=== PATIENT | male | born 1965 | race Two or more races ===

== ENCOUNTER 2024-12-20 18:10 | Inpatient (IN) | payer SELFPAY ==
[~2024-12-20] VITALS: Ht 170.2 cm; Wt 75.0 kg
[2024-12-20 20:00] LABS: BASOPHILS % (AUTO) 0.4 % (0.0-2.0); EOSINOPHILS % (AUTO) 0.5 % (1.0-6.0); HEMATOCRIT 47.5 % (41-53); HEMOGLOBIN 15.9 g/dL (13.5-17.5); LYMPHOCYTES # (AUTO) 1.5 K/uL (1.0-4.8); MEAN CORPUSCULAR HEMOGLOBIN 29.8 pg (26.0-34.0); MEAN CORPUSCULAR HGB CONC 33.5 G/dL (31.0-37.0); MEAN CORPUSCULAR VOLUME 89 fL (80-100); MONOCYTES # (AUTO) 0.3 K/uL (0.1-1.0); MONOCYTES % (AUTO) 5.1 % (2.0-9.0); NEUTROPHILS # (AUTO) 4.9 K/uL (1.8-7.7); PLATELET COUNT (AUTO) 140 K/uL (150-450); RED BLOOD CELL COUNT(AUTO) 5.35 MIL/uL (4.50-5.90); RED CELL DISTRIBUTION WIDTH 13.3 % (11.5-14.5); WHITE BLOOD COUNT (AUTO) 6.8 K/uL (4.5-11.0)
[2024-12-20 20:04] LABS: ANION GAP 12 mmol/L (8-16); CALCIUM, TOTAL 7.8 mg/dL (8.8-10.5); CARBON DIOXIDE 29 mmol/L (22-29); CHLORIDE 101 mmol/L (98-107); CREATININE 0.65 mg/dL (0.60-1.30); GLOMERULAR FILTR. RATE CALC > 60 mL/min (>60); GLUCOSE,RANDOM 156 mg/dL (70-110); POTASSIUM 3.9 mmol/L (3.5-5.1); SODIUM SERUM 142 mmol/L (136-145); UREA NITROGEN, BLOOD 11 mg/dL (7-18)
[2024-12-20 20:13] LABS: ALCOHOL, BLOOD (SERUM) 487 mg/dL (0-10)
[2024-12-20] MEDS ORDERED: ACETAMINOPHEN 325 MG TABLET PO PRN (21:45)
[2024-12-20] MEDS ORDERED: MAGNESIUM SULFATE 4 GM/WATER 100 ML IV PRN (21:45)
[2024-12-20] MEDS ORDERED: MAGNESIUM SULFATE 2 GM/WATER 50 ML IV PRN (21:45)
[2024-12-20] MEDS ORDERED: MAGNESIUM OXIDE 400 MG TABLET PO PRN (21:45)
[2024-12-20] MEDS ORDERED: ZOLPIDEM TARTRATE 5 MG TABLET PO PRN (21:45)
[2024-12-20] MEDS ORDERED: ONDANSETRON HCL 4 MG/2 ML VIAL IVP PRN (21:45)
[2024-12-20 22:07] LABS: ALBUMIN 3.4 g/dL (3.4-5.0)
[2024-12-20 22:12] LABS: APPEARANCE,URINE CLEAR (CLEAR); BILIRUBIN,URINE NEGATIVE (NEGATIVE); COLOR,URINE YELLOW (YELLOW); GLUCOSE, URINE (UA) 300-500 mg/dL (NEGATIVE); KETONES,URINE TRACE mg/dL (NEGATIVE); LEUKOCYTE ESTERASE ,URINE NEGATIVE (NEGATIVE); NITRATE,URINE NEGATIVE (NEGATIVE); OCCULT BLOOD,URINE TRACE (NEGATIVE); PROTEIN,URINE 30-70 mg/dL (NEGATIVE); SPECIFIC GRAVITIY, URINE 1.012 (1.003-1.030)
[2024-12-20] MEDS: 1: MAGNESIUM SULFATE 2 GM, MVI, ADULT NO.1 WITH VIT K 10 ML, THIAMINE 100 MG, FOLIC ACID IV SCH (22:28)
[2024-12-20 22:29] LABS: BACTERIA,URINE None Seen /HPF (None Seen); RBC,URINE 0-2 /HPF (0-2); SQUAMOUS EPITHELIAL CELL,UR None Seen /LPF (None Seen); WBC,URINE 0-2 /HPF (0-5)
[2024-12-21] MEDS: PANTOPRAZOLE SODIUM 40 MG/VIAL IVP SCH (08:30)
[2024-12-21] MEDS ORDERED: DEXTROSE 50%-WATER 25 GM/50 ML SYRINGE IVP PRN (08:30)
[2024-12-21] MEDS: LORazepam 2 MG/ML VIAL IVP PRN (08:30)
[2024-12-21] MEDS: DOCUSATE SODIUM 100 MG CAPSULE PO SCH (08:31)
[2024-12-21 10:10] VITALS: BP 151/88; PULSE 102; RESP 22; TEMP 98.4; O2SAT 95
[2024-12-21 13:05] VITALS: BP 143/79; PULSE 104; RESP 20; TEMP 98.7; O2SAT 98
[2024-12-21] MEDS ORDERED: SODIUM CHLORIDE 0.9% 1,000 ML ONE (15:25)
[2024-12-21 17:30] VITALS: BP 138/79; PULSE 98; RESP 18; TEMP 98.7; O2SAT 96
[2024-12-21] MEDS ORDERED: INFLUENZA VIRUS VACCINE TVS (6MO+) 2024-25/PF 45 MCG/0.5 ML SYRINGE IM. ONE (17:45)
[2024-12-21 19:55] VITALS: BP 140/89; PULSE 97; RESP 18; TEMP 99.3; O2SAT 98
[2024-12-21 20:46] LABS: GLUCOMETER DEV NAME(LOC) 6S.1D; GLUCOSE,POINT OF CARE 129 MG/DL (70-110)
[2024-12-21 22:36] LABS: GLUCOMETER DEV NAME(LOC) 6S.2; GLUCOSE,POINT OF CARE 115 MG/DL (70-110)
[2024-12-22 04:37] VITALS: BP 129/91; PULSE 102; RESP 19; TEMP 98.8; O2SAT 97
[2024-12-22] MEDS: INSULIN LISPRO 100 UNITS/ML SQ PRN (05:50)
[2024-12-22 06:51] LABS: GLUCOMETER DEV NAME(LOC) 6S.2; GLUCOSE,POINT OF CARE 201 MG/DL (70-110)
[2024-12-22 07:54] VITALS: BP 142/79; PULSE 84; RESP 18; TEMP 98.6; O2SAT 97
[2024-12-22 20:30] LABS: GLUCOMETER DEV NAME(LOC) 6S.2; GLUCOSE,POINT OF CARE 127 MG/DL (70-110)
== END 2024-12-22 15:10 | disposition home or self-care (01) | DRG 92 ==
LOC: EMS 18:10 → EDH 22:12 → 6S 12-21 10:17
PROVIDERS: ADMIT Internal Medicine; ATTEND Internal Medicine
DX: G92.8 Other toxic encephalopathy (principal); F10.139 Alcohol abuse with withdrawal, unspecified; F10.129 Alcohol abuse with intoxication, unspecified; Y90.8 Blood alcohol level of 240 mg/100 ml or more
CPT/HCPCS: 80048; 81001; 82040; 82962; 83735; 85025; 96361; 96365; 96375; 99285; G0378; G0480; J2060; J2470; J3411; J3475; J3490; J7030; 36415-L1; 36415-TC